=== PATIENT | male | born 1935 ===

== ENCOUNTER 2021-12-18 07:34 | Inpatient (IN) ==
[2021-12-18] MEDS ORDERED: Sodium Chloride 0.9% 1,000 ML IV ONE ×2 (08:10→19:00)
[2021-12-18] MEDS ORDERED: Ondansetron 4 MG/2 ML SDV IV ONE (08:54)
[2021-12-18] MEDS ORDERED: cefTRIAXone 1 GM in Sodium Chloride 0.9% 100 ML IV ONE (09:10)
[2021-12-18] MEDS ORDERED: Insulin Regular, Human 100 Units/ML 3 ML Vial SUBCUT ONE (10:00)
[2021-12-18] MEDS ORDERED: Piperacillin/Tazobactam 4.5 GM in Sodium Chloride 0.9% 100 ML IV ONE (15:55)
[2021-12-18] MEDS ORDERED: Insulin Lispro 100 Unit/ML 3 ML KwikPen SUBCUT ONE (22:05)
[2021-12-19] MEDS ORDERED: Piperacillin/Tazobactam 4.5 GM in Sodium Chloride 0.9% 100 ML IV ONE ×2
[2021-12-19] MEDS ORDERED: Sodium Chloride 0.9% 1,000 ML IV ONE ×2 (07:40→23:45)
[2021-12-19] MEDS ORDERED: Metoprolol Succinate 25 MG Tab.ER ONE (08:40)
[2021-12-19] MEDS ORDERED: Sodium Bicarbonate 650 MG Tab ONE ×2 (08:40)
[2021-12-19] MEDS ORDERED: Finasteride 5 MG Tab ONE (08:40)
[2021-12-19] MEDS ORDERED: Tamsulosin 0.4 MG Cap.ER ONE (08:40)
[2021-12-19] MEDS ORDERED: Acetaminophen 325 MG Tab ONE (08:40)
[2021-12-19] MEDS ORDERED: Aspirin 81 MG Tab.Chew ONE (08:40)
[2021-12-19] MEDS ORDERED: Multivitamins with Minerals/Folic Acid/Lutein/Zeaxanth Tab ONE (08:40)
[2021-12-19] MEDS ORDERED: Cholecalciferol (Vitamin D3) 25 MCG Tab ONE (08:40)
[2021-12-20] MEDS ORDERED: Piperacillin/Tazobactam 4.5 GM in Sodium Chloride 0.9% 100 ML IV ONE ×2
[2021-12-20] MEDS ORDERED: Tamsulosin 0.4 MG Cap.ER ONE (09:00)
[2021-12-20] MEDS ORDERED: Cholecalciferol (Vitamin D3) 25 MCG Tab ONE (09:00)
[2021-12-20] MEDS ORDERED: Sodium Bicarbonate 650 MG Tab ONE ×2 (09:00)
[2021-12-20] MEDS ORDERED: Potassium Chloride 20 MEQ Tab.ER ONE (09:00)
[2021-12-20] MEDS ORDERED: Metoprolol Succinate 25 MG Tab.ER ONE (09:00)
[2021-12-20] MEDS ORDERED: Finasteride 5 MG Tab ONE (09:00)
[2021-12-20] MEDS ORDERED: Aspirin 81 MG Tab.Chew ONE (09:00)
[2021-12-20] MEDS ORDERED: Multivitamins with Minerals/Folic Acid/Lutein/Zeaxanth Tab ONE (09:00)
[2021-12-20] MEDS ORDERED: Magnesium Sulfate/Water 2 GM in Premix Bag 1 BAG IV ONE (12:00)
[2022-01-18 15:15] LABS: CORONAVIRUS COVID-19 NAA NEGATIVE (NEGATIVE)
[2022-01-18 15:17] LABS: ESTIMATED GFR 25 mL/min (>60)
[2022-01-21 12:12] LABS: ESTIMATED GFR 24 mL/min (>60)
[2022-01-22 14:17] LABS: ESTIMATED GFR 25 mL/min (>60)
[2022-01-26 15:44] LABS: ESTIMATED GFR 27 mL/min (>60)
== END 2021-12-21 13:22 | disposition home or self-care (01) | DRG 872 ==
LOC: JD.ED 07:34 → JD.ZCENSUS 16:00 → JD.ED 19:40
PROVIDERS: ATTEND Hospitalist
DX: A41.51 Sepsis due to Escherichia coli [E. coli] (principal); N39.0 Urinary tract infection, site not specified; Q60.0 Renal agenesis, unilateral; Z66 Do not resuscitate; N18.30 Chronic kidney disease, stage 3 unspecified; E11.22 Type 2 diabetes mellitus with diabetic chronic kidney disease; I12.9 Hypertensive chronic kidney disease with stage 1 through stage 4 chronic kidney disease, or unspecified chronic kidney disease; N40.0 Benign prostatic hyperplasia without lower urinary tract symptoms; Z20.822 Contact with and (suspected) exposure to COVID-19; E78.5 Hyperlipidemia, unspecified; R41.82 Altered mental status, unspecified; Z90.5 Acquired absence of kidney; Z79.899 Other long term (current) drug therapy
CPT/HCPCS: 0240U; 36415; 70450; 70450-26; 71045; 71045-26; 71250; 71250-26; 74176; 74176-26; 80048; 80053; 81001; 82947; 83605; 83735; 83880; 84484; 85025; 85610; 85730; 87040; 87086; 87154; 87493; 93005; 93010; 97110-GO; 97116-GP; 97161-GP; 97166-GO; 97530-GP; 97535-GO; 99222; 99232; 99238; 99283; A9270-GY; J0696; J1815; J1815-GY; J2405; J2543; J3475; J7030